=== PATIENT | female | born 1955 | race Caucasian/White ===

== ENCOUNTER 2016-12-15 13:01 | Observation (INO) ==
--- NOTE | 2016-12-15 13:26 | Emergency Department Note ---
Disposition Clinical Impression: Upper GI bleed Disposition: Admitted As Inpatient Condition: Fair Referrals: Carlo Mchugh DO [Primary Care Provider] - Forms: ED Satisfaction Letter, Work/School Release Time of Disposition: 14:23 Abdominal Pain HPI - General Chief Complaint: ED Abdominal Pain Stated Complaint: ABD Pain/Bloody stool Time Seen by Provider: 12/15/16 13:07 Source: patient Mode of arrival: ambulatory Nursing Notes Reviewed: Yes Vital Signs Reviewed: Yes - History of Present Illness HPI Narrative: 61-year-old with a history of reflux who comes in complaining of epigastric burning. Patient states she has noticed dark tarry stools since. Patient is on a medication she doesn't know the name for reflux. Pt Subjective Complaint: abdominal pain Onset (ago): day(s) Consistency: constant Location: epigastric Pain Severity: moderate Pain Scale: 5 Quality: burning Radiation: none Migration to: no migration Improves with: nothing Worsens with: nothing Context: other (Dark tarry stools) Associated symptoms: Reports: other (Dark tarry stools) Treatments prior to arrival: other (Flux medication) - Related Data Home Medications Medication Instructions Recorded Confirmed Alprazolam 12/20/14 12/20/14 Atenolol 12/20/14 12/20/14 Cholestyramine 12/20/14 12/20/14 Hydrodiuril 12/20/14 12/20/14 Norvasc 12/20/14 12/20/14 Omeprazole 12/20/14 12/20/14 Restasis 12/20/14 12/20/14 Synthroid 12/20/14 12/20/14 Previous Rx's Medication Instructions Recorded Cephalexin [Keflex] 500 mg PO QID #40 capsule 12/20/14 GuaiFENesin/Codeine [Robitussin 5 ml PO Q6HR PRN #120 ml 12/20/14 w/Codeine] Benzonatate [Tessalon] 100 mg PO TID #30 capsule 01/04/15 GuaiFENesin ER [Mucinex] 1,200 mg PO BID #20 tbbp.12hr 01/04/15 Moxifloxacin HCl [Avelox] 400 mg PO DAILY #10 tablet 01/04/15 predniSONE [Prednisone] 60 mg PO DAILY 5 Days tablet 01/04/15 Azithromycin [Zithromax] 250 mg PO DAILY #6 tablet 01/02/16 Benzonatate [Tessalon] 200 mg PO TID PRN #30 capsule 01/02/16 GuaiFENesin ER [Mucinex] 1,200 mg PO BID #20 tbbp.12hr 01/02/16 methylPREDNISolone [Medrol] 4 mg PO TAPER #21 tablet 01/02/16 Allergies Allergy/AdvReac Type Severity Reaction Status Date / Time shellfish derived Allergy Vomiting Verified 08/10/15 18:18 Sulfa (Sulfonamide Allergy Hives Verified 12/20/14 10:44 Antibiotics) Constitutional: Denies: fever, chills, weakness, weight change Eyes: Denies: eye pain, eye discharge, vision change ENT ED: Denies: ear pain, throat pain, dental pain, hearing loss, epistaxis, congestion, dysphagia Cardiovascular: Denies: chest pain, palpitations, dyspnea on exertion, edema, syncope Respiratory: Denies: cough, dyspnea, wheezes, hemoptysis, stridor Gastrointestinal: Reports: abdominal pain, other (Tarry stools). Denies: nausea , vomiting, diarrhea, constipation, hematemesis, melena, hematochezia Genitourinary: Denies: dysuria, frequency, hematuria, discharge Musculoskeletal: Denies: back pain, neck pain, arthralgia, myalgia Integumentary: Denies: rash, abrasion, lesions Neurological: Denies: headache, weakness, numbness, paresthesias, confusion, abnormal gait, vertigo Psychiatric: Denies: anxiety, depression, suicidal thoughts, homicidal thoughts , auditory hallucinations, visual hallucinations Endocrine: Denies: fatigue Hematological/Lymphatic: Denies: easy bleeding, easy bruising Allergic/Immunologic: Denies: facial swelling, urticaria Abdominal Pain PMH - Past Medical History Medical history: Reports: GERD, hypertension Female Surgical History: Reports: appendectomy, cholecystectomy, hysterectomy, other Psychiatric history: Reports: no psych history - Social History Smoking status: Never smoker Alcohol use: Reports: none Drug use: Reports: none Physical Exam - General Limitations: no limitations General appearance: alert, in no apparent distress - Head Head exam: atraumatic, normocephalic, normal inspection - Eye Eye exam: Present: normal appearance, PERRL, EOMI - ENT ENT exam: normal exam, normal oropharynx, mucous membranes moist - Neck Neck exam: Present: normal inspection, full ROM, trachea midline - Chest Chest inspection: Present: normal inspection, symmetric chest wall rise - Respiratory Respiratory exam: Present: normal lung sounds bilaterally - Cardiovascular Cardiovascular exam: Present: regular rate, normal rhythm, normal heart sounds - Abdominal Exam Abdominal exam: Present: soft, tenderness. Absent: guarding, rebound Abdominal tenderness: Present: epigastrium - Rectal Exam Rectal exam: Present: heme (+) stool - Extremities Exam Extremities exam: Present: normal inspection, full ROM. Absent: tenderness, pedal edema - Expanded Lower Extremity Exam Neurovascular/Tendon exam: Absent: motor deficit, sensory deficit, tendon deficit Gait: observed and normal - Back Exam Back exam: Present: normal inspection, full ROM. Absent: tenderness - Neurological Exam Neurological exam: Present: alert, oriented X3 - Psychiatric Psychiatric exam: Present: normal affect, normal mood - Skin Skin exam: Present: warm, dry, intact, normal color Course - Reevaluation(s) Reevaluation #1: 61-year-old with a history of reflux comes in with burning epigastric pain and dark tarry stools. Hemoglobin is in the low normal range however it is gram down from her last hemoglobin. Patient was given IV Protonix rectal exam did show positive stool. Patient will be admitted for further evaluation and treatment. Time: 14:21 Vital Signs Temperature 97.9 F 12/15/16 13:02 Pulse Rate 77 12/15/16 13:02 Respiratory Rate 16 12/15/16 13:02 Blood Pressure 154/85 12/15/16 13:02 O2 Sat by Pulse Oximetry 97 12/15/16 13:02 Temperature 97.9 F 12/15/16 13:02 Pulse Rate 60 12/15/16 14:03 Respiratory Rate 16 12/15/16 13:31 Blood Pressure 140/70 12/15/16 14:03 O2 Sat by Pulse Oximetry 96 12/15/16 14:03 Oxygen Delivery Oxygen Delivery Room Air Abdominal Pain - Lab Data Result diagrams: 12/15/16 13:31 12/15/16 13:31 Lab Results 12/15/16 12/15/16 12/15/16 Range/Units 13:31 13:31 13:31 WBC 7.6 (4.3-11.1) K/mcL RBC 4.37 (3.82-4.97) M/mcL Hgb 11.9 (11.5-15.4) g/dL Hct 37.4 (35.3-44.9) % MCV 85.6 (83.0-100.0) fL MCH 27.2 L (28.0-33.3) pg MCHC 31.8 (31.6-35.5) g/dL RDW 13.8 (11.5-14.5) % Plt Count 450 H (140-400) K/mcL MPV 8.6 L (9.4-12.4) fL Immature Gran % 0.5 (0-4) % Seg Neutrophils % 60.8 % Lymphocytes % 25.5 % Monocytes % 9.9 % Eosinophils % 2.6 % Basophils % 0.7 % Neutrophils # 4.6 (1.6-8.9) K/mcL Lymphocytes # 2.0 (0.6-4.6) K/mcL Monocytes # 0.8 (0.0-1.3) K/mcL Eosinophils # 0.2 (0.0-0.6) K/mcL Basophils # 0.1 (0.0-0.2) K/mcL PT 11.4 (9.4-12.1) Seconds INR 1.1 APTT 27.7 (26.0-36.0) Seconds Sodium 139 (136-145) mEq/L Potassium 3.8 (3.5-4.5) mEq/L Chloride 104 (98-109) mEq/L Carbon Dioxide 25 (19-29) mEq/L BUN 15 (7-20) mg/dL Creatinine 0.94 (0.57-1.11) mg/dL Est GFR ( Amer) > 60 (> 60) Est GFR (Non-Af Amer) > 60 (> 60) BUN/Creatinine Ratio 16 (6-26) Glucose 82 (70-99) mg/dL Calculated Osmolality 288 (280-300) Calcium 9.0 (8.6-10.8) mg/dL Blood Type Antibody Screen 12/15/16 Range/Units 13:31 WBC (4.3-11.1) K/mcL RBC (3.82-4.97) M/mcL Hgb (11.5-15.4) g/dL Hct (35.3-44.9) % MCV (83.0-100.0) fL MCH (28.0-33.3) pg MCHC (31.6-35.5) g/dL RDW (11.5-14.5) % Plt Count (140-400) K/mcL MPV (9.4-12.4) fL Immature Gran % (0-4) % Seg Neutrophils % % Lymphocytes % % Monocytes % % Eosinophils % % Basophils % % Neutrophils # (1.6-8.9) K/mcL Lymphocytes # (0.6-4.6) K/mcL Monocytes # (0.0-1.3) K/mcL Eosinophils # (0.0-0.6) K/mcL Basophils # (0.0-0.2) K/mcL PT (9.4-12.1) Seconds INR APTT (26.0-36.0) Seconds Sodium (136-145) mEq/L Potassium (3.5-4.5) mEq/L Chloride (98-109) mEq/L Carbon Dioxide (19-29) mEq/L BUN (7-20) mg/dL Creatinine (0.57-1.11) mg/dL Est GFR ( Amer) (> 60) Est GFR (Non-Af Amer) (> 60) BUN/Creatinine Ratio (6-26) Glucose (70-99) mg/dL Calculated Osmolality (280-300) Calcium (8.6-10.8) mg/dL Blood Type A POSITIVE Antibody Screen NEGATIVE - EKG Data EKG attestation: Yes I reviewed and interpreted this EKG. EKG shows normal: sinus rhythm Rate: normal Rhythm: NSR Interpretation: no acute changes
[2016-12-15] MEDS ORDERED: Pantoprazole 40 MG VIAL IVP ONE (13:28)
[2016-12-15 13:39] LABS: Basophils # 0.1 K/mcL (0.0-0.2); Basophils % 0.7 %; Eosinophils # 0.2 K/mcL (0.0-0.6); Eosinophils % 2.6 %; Hematocrit 37.4 % (35.3-44.9); Hemoglobin 11.9 g/dL (11.5-15.4); Immature Granulocytes % 0.5 % (0-4); Lymphocytes % 25.5 %; Mean Corpuscular HGB Conc 31.8 g/dL (31.6-35.5); Mean Corpuscular Hemoglobin 27.2 pg (28.0-33.3); Mean Corpuscular Volume 85.6 fL (83.0-100.0); Mean Platelet Volume 8.6 fL (9.4-12.4); Monocytes # 0.8 K/mcL (0.0-1.3); Monocytes % 9.9 %; Neutrophils # 4.6 K/mcL (1.6-8.9); Platelet Count 450 K/mcL (140-400); Red Blood Count 4.37 M/mcL (3.82-4.97); Red Cell Distribution Width 13.8 % (11.5-14.5); Segmented Neutrophils % 60.8 %
[2016-12-15 13:43] LABS: INR 1.1; Prothrombin Time 11.4 Seconds (9.4-12.1)
[2016-12-15 13:45] LABS: Activated Partial Thrombo Time 27.7 Seconds (26.0-36.0)
[2016-12-15 13:50] LABS: BUN/Creatinine Ratio 16 (6-26); Blood Urea Nitrogen 15 mg/dL (7-20); Carbon Dioxide 25 mEq/L (19-29); Chloride 104 mEq/L (98-109); Glucose 82 mg/dL (70-99); Osmolality,Calculated 288 (280-300); Potassium 3.8 mEq/L (3.5-4.5); Sodium 139 mEq/L (136-145); eGFR For African Americans > 60 (> 60); eGFR For Non-African Americans > 60 (> 60)
--- NOTE | 2016-12-15 14:50 | Internal Med History&Physical ---
Date of Encounter: 12/15/16 Time of Encounter: 14:48 Assessment and Plan (1) Upper GI bleed Current visit: Yes Status: Acute Suspect upper G.I. bleed due to peptic ulcer disease. We will keep NPO start Protonix drip follow H&H, gastroenterology consultation for endoscopy. Patient is hemodynamically stable, with only slight drop in hemoglobin. (2) Hypertension Current visit: Yes Status: Acute hold blood pressure medications for now. Qualifiers: Qualified Code(s): I10 - Essential (primary) hypertension Internal Medicine - H&P: HPI Chief complaint: melena History of present illness: Ms. Hooper is a 61 year old female patient with history of hypertension, hypothyroidism and reflux presents the emergency room today with the main complain of black stool. For the past 2 days patient has been having black tarry stools approximately 2 to 3 bowel movements daily. She has been having epigastric discomfort. She has also been intermittently nauseous unable to tolerate food well. She denies vomiting of blood. She denies intake of nonsteroidal anti-inflammatory drugs. No antiplatelet or anticoagulant medications. Patient mentioned that she was under stress the past 3 months because of her sons divorce. Past Med Surg Social Fam HX - Past Medical History Medical history: GERD, hypertension Psychiatric history: no psych history - Past Surgical History Surgical History: appendectomy, cholecystectomy, hysterectomy, orthopedic, other - Social History Smoking Status: Never smoker Smokeless Tobacco Status: No Alcohol use: none Drug use: none Internal Medicine - H&P: Meds ALPRAZolam [Xanax 1 MG Tablet] 1 mg PO DAILY PRN 12/15/16 [History] Atenolol [Tenormin] 50 mg PO BID 12/15/16 [History] Cholestyramine (with Sugar) [Cholestyramine Bulk Powder] 4 gm PO BID 12/15/16 [ History] Levothyroxine [Synthroid] 100 mcg PO DAILY 12/15/16 [History] Omeprazole [PriLOSEC] 40 mg PO DAILY 12/15/16 [History] amLODIPine [Norvasc] 5 mg PO DAILY 12/15/16 [History] hydroCHLOROthiazide [Hydrochlorothiazide] 25 mg PO DAILY 12/15/16 [History] 3 Allergy/AdvReac Type Severity Reaction Status Date / Time shellfish derived Allergy Vomiting Verified 08/10/15 18:18 Sulfa (Sulfonamide Allergy Hives Verified 12/20/14 10:44 Antibiotics) All Systems PM: A 10-system review of systems was performed and is negative for pertinent findings except as documented above in the HPI. Review of systems: 10 point review of systems is negative except for HPI - Constitutional Vitals: Temp Pulse Resp BP Pulse Ox 97.9 F 60 16 140/70 96 12/15/16 13:02 12/15/16 14:03 12/15/16 13:31 12/15/16 14:03 12/15/16 14:03 Exam: Gen.: patient is alert oriented times 3 cardiac: normal S1 S2 no additional sounds or murmurs chest: no active wheezing or bronchial breathing abdomen soft tenderness in epigastric area lower extremity no swelling. Neuro: no new focal deficits Internal Med - H&P Results - Labs CBC & Chem 7: 12/15/16 13:31 12/15/16 13:31 Labs: Short CBC 12/15/16 Range/Units 13:31 WBC 7.6 (4.3-11.1) K/mcL Hgb 11.9 (11.5-15.4) g/dL Hct 37.4 (35.3-44.9) % Plt Count 450 H (140-400) K/mcL Neutrophils # 4.6 (1.6-8.9) K/mcL BMP 12/15/16 13:31 Sodium 139 Potassium 3.8 Chloride 104 Carbon Dioxide 25 BUN 15 Creatinine 0.94 Glucose 82 Calcium 9.0
[2016-12-15] MEDS ORDERED: ALPRAZolam 1 MG TABLET PO PRN (14:54)
[2016-12-15] MEDS ORDERED: Pantoprazole 40 MG in 0.9 % Sodium Chloride Mini Bag 100 ML IVC SCH (15:00)
[2016-12-15] MEDS ORDERED: Acetaminophen 325 MG TABLET PO ONE (17:16)
--- NOTE | 2016-12-15 17:54 | General Surg History&Physical ---
Date of Encounter: 12/15/16 Time of Encounter: 17:45 History of Present Illness Chief complaint: Epigastric pain HPI: Ms. Hooper is a 61 year old female with a past medical history of hypertension, hypothyroidism, and reflux who presented to the emergency department on 12/15/16 with a chief complaint of epigastric pain and black stool of 2 days' duration. She notes that for the last 2 days, she has been having black tarry stools; approximately 2-3 bowel movements daily. Her epigastric discomfort is described as a burning pain constant, moderate, related 5 out of 10. No radiation. No exacerbating or leaving factors. She is also been intermittently nauseous and unable to tolerate food well. Patient denies having any vomiting. She denies the use of NSAIDs or antiplatelet or anticoagulation might medications. She does admit that she has been under stress the last 3 months because of her son's divorce. Upon admission to hospital, patient was hemodynamically stable. She denied having any fever, chills, weakness, nausea, vomiting, diarrhea, constipation. She denies any urinary symptoms. On physical examination, patient has constant epigastric pain that is not reproducible by palpation. Past Med Surg Social Fam HX - Past Medical History Medical history: GERD, hyperlipidemia, hypertension Psychiatric history: no psych history - Past Surgical History Surgical History: appendectomy, cholecystectomy, hysterectomy, orthopedic, other - Social History Smoking Status: Never smoker Smokeless Tobacco Status: No Alcohol use: none Drug use: none - Family History Father Hx Family Cardiac Disorders: Yes ([place]) Medications and Allergies ALPRAZolam [Xanax 1 MG Tablet] 1 mg PO DAILY PRN 12/15/16 [History] Atenolol [Tenormin] 50 mg PO BID 12/15/16 [History] Cholestyramine (with Sugar) [Cholestyramine Bulk Powder] 4 gm PO BID 12/15/16 [ History] Levothyroxine [Synthroid] 100 mcg PO DAILY 12/15/16 [History] Omeprazole [PriLOSEC] 40 mg PO DAILY 12/15/16 [History] amLODIPine [Norvasc] 5 mg PO DAILY 12/15/16 [History] hydroCHLOROthiazide [Hydrochlorothiazide] 25 mg PO DAILY 12/15/16 [History] 3 Allergy/AdvReac Type Severity Reaction Status Date / Time shellfish derived Allergy Vomiting Verified 08/10/15 18:18 Sulfa (Sulfonamide Allergy Hives Verified 12/20/14 10:44 Antibiotics) Review of Systems All systems PM: A 10-system review of systems was performed and is negative for pertinent findings except as documented above in the HPI. General Surgery Exam Initial Vital Signs Temp Pulse Resp BP Pulse Ox 97.9 F 77 16 154/85 97 12/15/16 13:02 12/15/16 13:02 12/15/16 13:02 12/15/16 13:02 12/15/16 13:02 Results - Labs 12/15/16 13:31 12/15/16 13:31 Abnormal lab results MCH 27.2 pg (28.0-33.3) L 12/15/16 13:31 Plt Count 450 K/mcL (140-400) H 12/15/16 13:31 MPV 8.6 fL (9.4-12.4) L 12/15/16 13:31 POC Glucose 90 (58-89) H 12/15/16 16:56 All other labs normal. - VTE Documentation of Mechanical Device: Intermittent pneumatic compression device
--- NOTE | 2016-12-15 17:59 | General Surgery Consult Note ---
<Randall Arciniega - Last Filed: 12/15/16 18:12> Date of Encounter: 12/15/16 Time of Encounter: 17:45 Assessment and Plan (1) Upper GI bleed Current Visit: Yes Status: Acute Patient's melena and epigastric pain is likely due to peptic ulcer disease. Patient denies smoking or alcohol use. She denies use of NSAIDs. She admits to being under increased stress over the last 3 months due to her son 's divorce. Patient's hemoglobin currently 11.9. Last hemoglobin on 06/11/2015 was 12.8. Plan: -NPO in preparation for upper endoscopy. -Serial H&H 3. Repeat a.m. labs. -Pantoprazole 40 mg IVC 20 mL per hour. -Avoid NSAIDs. -Fecal occult has ordered. -EGD tomorrow. (2) Abdominal pain Current Visit: No Status: Acute Patient complains of epigastric pain. -5/10, constant, burning, nonradiating, no exacerbating or relieving factors. -Nonreproducible by palpation. -Likely due to peptic ulcer disease. -Upper endoscopy tomorrow. Qualifiers: Qualified Code(s): R10.13 - Epigastric pain (3) Hypertension Current Visit: Yes Status: Acute Patient has known history of hypertension. -Patient's current blood pressure is 122/76. -Normally takes hydrochlorothiazide 25 mg by mouth daily. -Hold blood pressure medication for the time being. Qualifiers: Hypertension type: essential hypertension Qualified Code(s): I10 - Essential (primary) hypertension History of Present Illness Consult date: 12/15/16 History of present illness: Ms. Hooper is a 61 year old female with a past medical history of hypertension, hypothyroidism, and reflux who presented to the emergency department on 12/15/16 with a chief complaint of epigastric pain and black stool of 2 days' duration. She notes that for the last 2 days, she has been having black tarry stools; approximately 2-3 bowel movements daily. Her epigastric discomfort is described as a burning pain constant, moderate, rated 5 out of 10. No radiation. No exacerbating or leaving factors. She is also been intermittently nauseous and unable to tolerate food well. Patient denies having any vomiting. She denies the use of NSAIDs or antiplatelet or anticoagulation might medications. She does admit that she has been under stress the last 3 months because of her son's divorce. Upon admission to hospital, patient was hemodynamically stable. She denied having any fever, chills, weakness, nausea, vomiting, diarrhea, constipation. She denies any urinary symptoms. On physical examination, patient has constant epigastric pain that is not reproducible by palpation. The remainder of her physical examination is unremarkable. Patient has no other complaints at this time. Patient states that her last upper endoscopy and colonoscopy was last year. During this time, a hiatal hernia was discovered. There were no abnormalities found on her colonoscopy. Past Med Surg Social Fam HX - Past Medical History Medical history: GERD, hyperlipidemia, hypertension Psychiatric history: no psych history - Past Surgical History Surgical History: appendectomy, cholecystectomy, hysterectomy, orthopedic, other - Social History Smoking Status: Never smoker Smokeless Tobacco Status: No Alcohol use: none Drug use: none - Family History Father Hx Family Cardiac Disorders: Yes ([place]) Medications and Allergies ALPRAZolam [Xanax 1 MG Tablet] 1 mg PO DAILY PRN 12/15/16 [History] Atenolol [Tenormin] 50 mg PO BID 12/15/16 [History] Cholestyramine (with Sugar) [Cholestyramine Bulk Powder] 4 gm PO BID 12/15/16 [ History] Levothyroxine [Synthroid] 100 mcg PO DAILY 12/15/16 [History] Omeprazole [PriLOSEC] 40 mg PO DAILY 12/15/16 [History] amLODIPine [Norvasc] 5 mg PO DAILY 12/15/16 [History] hydroCHLOROthiazide [Hydrochlorothiazide] 25 mg PO DAILY 12/15/16 [History] Sucralfate [Carafate] 1 gm PO QIDAC #120 tablet 12/16/16 [Rx] 3 Allergy/AdvReac Type Severity Reaction Status Date / Time shellfish derived Allergy Vomiting Verified 08/10/15 18:18 Sulfa (Sulfonamide Allergy Hives Verified 12/20/14 10:44 Antibiotics) Review of Systems All systems PM: A 10-system review of systems was performed and is negative for pertinent findings except as documented above in the HPI. - Constitutional as per HPI, no anorexia, no chills, no fever(s), no lethargy, no weakness, no weight loss - Cardiovascular as per HPI, no chest pain, no chest pain at rest, no dyspnea - Respiratory as per HPI, no cough, no dyspnea, no hemoptysis, no wheezing - Genitourinary Genitourinary: no dysuria - Neurological no dizziness, no weakness - Psychiatric no confusion General Surgery Exam Initial Vital Signs Temp Pulse Resp BP Pulse Ox 97.9 F 77 16 154/85 97 12/15/16 13:02 12/15/16 13:02 12/15/16 13:02 12/15/16 13:02 12/15/16 13:02 - General physical appearance well developed, well nourished, no distress - Neck no masses, trachea midline, no lymphadectomy - Respiratory normal expansion, normal respiratory effort, clear to percussion, clear to auscultation - Cardiovascular Cardiovascular exam: Present: RRR, no murmurs/rubs/gallops - Abdomen Abdomen general surgery: Present: bowel sounds present, soft, tender Abdominal Tenderness: Present: epigastic - Psychiatric Psychiatric general surgery: Present: A&Ox3, appropriate, oriented to person, oriented to place, oriented to time, speech is normal Exam Initial Vital Signs Temp Pulse Resp BP Pulse Ox 97.9 F 77 16 154/85 97 12/15/16 13:02 12/15/16 13:02 12/15/16 13:02 12/15/16 13:02 12/15/16 13:02 Results - Labs 12/15/16 13:31 12/15/16 13:31 Abnormal lab results MCH 27.2 pg (28.0-33.3) L 12/15/16 13:31 Plt Count 450 K/mcL (140-400) H 12/15/16 13:31 MPV 8.6 fL (9.4-12.4) L 12/15/16 13:31 POC Glucose 90 (58-89) H 12/15/16 16:56 All other labs normal. Consult Discharge Plan - Plan Instructions: Gastrointestinal Bleeding (DC), Gastrointestinal Bleeding (GEN), Chronic Hypertension (DC) Referrals: Carlo Mchugh DO [Primary Care Provider] - 12/27/16 9:00 am (in 1 week Appointment was already scheduled prior to hospital visit. Will have patient call and schedule for a sooner appointment. Also, will send web request.) Prescriptions: Sucralfate [Carafate] 1 gm PO QIDAC #120 tablet <Kathrine Witt - Last Filed: 12/16/16 18:20> Date of Encounter: 12/16/16 Assessment and Plan (1) Melena Current Visit: Yes Status: Acute (2) Epigastric pain Current Visit: Yes Status: Acute discussed with patient performing EGD to evaluate for upper abdominal source of her melena and epigastric pain. Will plan EGD tomorrow, risks and benefits discussed and she wishes to proceed patient with colonoscopy oct 2015 w/o pathology npo midnight recommend start PPI and carafate History of Present Illness History of present illness: Patient with 2 day history epigastric pain which she describes as burning in nature. She has been having black melanotic stools during this time frame as well. She has also noticed some bright red blood on toilet paper when she wipes recently. No abdominal pain elsewhere. Recently October 2015 had EGD/ colonoscopy. Some nausea without emesis. States she has been stressed regarding her sons divorce Past Med Surg Social Fam HX - Past Medical History Source: patient Medical history: thyroid disease, other (hiatal hernia) Review of Systems All systems PM: reviewed and no additional remarkable complaints except as stated All systems PM: A 10-system review of systems was performed and is negative for pertinent findings except as documented above in the HPI. General Surgery Exam Initial Vital Signs Temp Pulse Resp BP Pulse Ox 97.9 F 77 16 154/85 97 12/15/16 13:02 12/15/16 13:02 12/15/16 13:02 12/15/16 13:02 12/15/16 13:02 - General physical appearance well developed, well nourished, no distress - Eyes PERRL, normal ocular movement - ENT normal mucosa, normocephalic - Neck trachea midline - Respiratory normal expansion, clear to auscultation - Cardiovascular Cardiovascular exam: Present: RRR, no murmurs/rubs/gallops - Abdomen Abdomen general surgery: Present: bowel sounds present, soft, tender. Absent: guarding, rebound Abdominal Tenderness: Present: epigastic - Integumentary Integumentary general surgery: Present: warm and dry - Neurologic Present: CN 2-12 grossly intact, normal coordination - Musculoskeletal Present: normal gait - Psychiatric Psychiatric general surgery: Present: A&Ox3, speech is normal Exam Initial Vital Signs Temp Pulse Resp BP Pulse Ox 97.9 F 77 16 154/85 97 12/15/16 13:02 12/15/16 13:02 12/15/16 13:02 12/15/16 13:02 12/15/16 13:02 Results - Labs 12/16/16 07:30 12/16/16 01:43 Abnormal lab results Hgb 11.2 g/dL (11.5-15.4) L 12/16/16 07:30 Hct 35.1 % (35.3-44.9) L 12/16/16 07:30 MCH 27.5 pg (28.0-33.3) L 12/16/16 01:43 MPV 8.7 fL (9.4-12.4) L 12/16/16 01:43 Diabetes panel 12/16/16 Range/Units 01:43 Sodium 139 (136-145) mEq/L Potassium 3.6 (3.5-4.5) mEq/L Chloride 105 (98-109) mEq/L Carbon Dioxide 26 (19-29) mEq/L BUN 15 (7-20) mg/dL Creatinine 0.90 (0.57-1.11) mg/dL Glucose 89 (70-99) mg/dL Calcium 8.9 (8.6-10.8) mg/dL Calcium panel 12/16/16 Range/Units 01:43 Calcium 8.9 (8.6-10.8) mg/dL Pituitary panel 12/16/16 Range/Units 01:43 Sodium 139 (136-145) mEq/L Potassium 3.6 (3.5-4.5) mEq/L Chloride 105 (98-109) mEq/L Carbon Dioxide 26 (19-29) mEq/L BUN 15 (7-20) mg/dL Creatinine 0.90 (0.57-1.11) mg/dL Glucose 89 (70-99) mg/dL Calcium 8.9 (8.6-10.8) mg/dL Adrenal panel 12/16/16 Range/Units 01:43 Sodium 139 (136-145) mEq/L Potassium 3.6 (3.5-4.5) mEq/L Chloride 105 (98-109) mEq/L Carbon Dioxide 26 (19-29) mEq/L BUN 15 (7-20) mg/dL Creatinine 0.90 (0.57-1.11) mg/dL Glucose 89 (70-99) mg/dL Calcium 8.9 (8.6-10.8) mg/dL All other labs normal. - Attending Attestation I examined this patient and my medical decision-making was reviewed with the Resident Physician. I agree with the documented findings, disposition and treatment plan as described except to the extent set forth below.
[2016-12-15] MEDS: Pantoprazole 80 MG in 0.9 % Sodium Chloride 250 ML IVC SCH (18:37)
[2016-12-15 21:00] LABS: Hematocrit 34.4 % (35.3-44.9); Hemoglobin 11.2 g/dL (11.5-15.4)
[2016-12-16 01:51] LABS: Basophils % 0.5 %; Eosinophils # 0.3 K/mcL (0.0-0.6); Hematocrit 34.3 % (35.3-44.9); Hemoglobin 11.1 g/dL (11.5-15.4); Immature Granulocytes % 0.4 % (0-4); Lymphocytes # 2.7 K/mcL (0.6-4.6); Lymphocytes % 34.8 %; Mean Corpuscular HGB Conc 32.4 g/dL (31.6-35.5); Mean Corpuscular Hemoglobin 27.5 pg (28.0-33.3); Mean Corpuscular Volume 85.1 fL (83.0-100.0); Mean Platelet Volume 8.7 fL (9.4-12.4); Monocytes # 0.8 K/mcL (0.0-1.3); Monocytes % 10.2 %; Neutrophils # 3.9 K/mcL (1.6-8.9); Platelet Count 382 K/mcL (140-400); Red Blood Count 4.03 M/mcL (3.82-4.97); Red Cell Distribution Width 13.9 % (11.5-14.5); Segmented Neutrophils % 50.1 %
[2016-12-16 02:02] LABS: BUN/Creatinine Ratio 17 (6-26); Blood Urea Nitrogen 15 mg/dL (7-20); Calcium 8.9 mg/dL (8.6-10.8); Carbon Dioxide 26 mEq/L (19-29); Chloride 105 mEq/L (98-109); Glucose 89 mg/dL (70-99); Magnesium 1.7 mg/dL (1.6-2.6); Osmolality,Calculated 288 (280-300); Potassium 3.6 mEq/L (3.5-4.5); Sodium 139 mEq/L (136-145); eGFR For African Americans > 60 (> 60); eGFR For Non-African Americans > 60 (> 60)
[2016-12-16] MEDS: Pantoprazole 80 MG in 0.9 % Sodium Chloride 250 ML IVC SCH (04:38)
[2016-12-16 08:54] LABS: Hematocrit 35.1 % (35.3-44.9); Hemoglobin 11.2 g/dL (11.5-15.4)
[2016-12-16] MEDS ORDERED: *HR* Midazolam HCl 5 MG/5 ML VIAL IVP ONE ×2 (10:28→10:35)
[2016-12-16] MEDS ORDERED: *HR* FentaNYL (PF) 100 MCG/2 ML VIAL ONE (10:29)
[2016-12-16] MEDS ORDERED: *HR* Promethazine 25 MG/ML VIAL ONE (10:29)
[2016-12-16] MEDS ORDERED: Simethicone 40 MG/0.6 ML MLS IR ONE (10:35)
[2016-12-16] MEDS ORDERED: Tetracaine/Benzocaine/Butamben 200MG/SPRAY (100SPY/BOT) MM ONE (10:35)
[2016-12-16] MEDS ORDERED: *HR* Promethazine 25 MG/ML VIAL IVP ONE (10:35)
[2016-12-16] MEDS ORDERED: *HR* FentaNYL (PF) 100 MCG/2 ML VIAL IVP ONE (10:35)
--- NOTE | 2016-12-16 10:38 | Pre-Sedation Evaluation ---
Pre-sedation evaluation - Pre-sedation checklist Date of procedure: 12/16/16 Procedure: EGD Recent Vitals: Last Vital Signs Temp 98.4 F 12/16/16 10:27 Pulse 78 12/16/16 10:27 Resp 14 12/16/16 10:27 BP 109/69 12/16/16 10:27 Pulse Ox 94 12/16/16 10:27 H&P (including ROS) documented in medical record: Yes Previous reaction to sedatives/anesthetics: No Dietary Status: NPO after Midnight Dentition: No loose teeth or bridges ASA Classification *see protocol: CLASS III-Severe systemic disease Plan of Care: Pt appropriate candidate for procedure/moderate/conscious sedation , Risks/benefits of procedure/sedation discussed w/ patient/family
[2016-12-16] MEDS ORDERED: 0.9 % Sodium Chloride 1,000 ML IVC SCH ×2 (10:45→12:29)
--- NOTE | 2016-12-16 11:37 | General Surgery Progress Note ---
<Randall Arciniega - Last Filed: 12/16/16 11:39> Date of Encounter: 12/16/16 Time of Encounter: 10:45 - Assessment and Plan (1) Upper GI bleed Current Visit: Yes Status: Acute Patient's melena and epigastric pain is likely due to peptic ulcer disease. Patient denies smoking or alcohol use. She denies use of NSAIDs. She admits to being under increased stress over the last 3 months due to her son 's divorce. Patient's hemoglobin currently 11.2. Last hemoglobin on 06/11/2015 was 12.8. Plan: -NPO in preparation for upper endoscopy. -Serial H&H 3. -Pantoprazole 40 mg IVC 20 mL per hour. -Avoid NSAIDs. -Fecal occult has ordered. -EGD scheduled for this morning. (2) Hypertension Current Visit: Yes Status: Acute Patient has known history of hypertension. -Patient's current blood pressure is 133/76. -Normally takes hydrochlorothiazide 25 mg by mouth daily. -Hold blood pressure medication for the time being. Qualifiers: Hypertension type: essential hypertension Qualified Code(s): I10 - Essential (primary) hypertension Subjective Patient reports: no new complaints, feels better Narrative: Patient was seen and examined at bedside this morning. She reports that her abdominal pain has subsided. She currently denies any nausea, vomiting, fever, chills. She has no new complaints at this time. Objective Vital Signs - Last 8 Hours Temp Pulse Resp BP Pulse Ox 12/16/16 11:30 78 14 133/66 95 12/16/16 10:57 78 14 133/66 95 12/16/16 10:56 98.4 F 78 14 109/69 12/16/16 10:27 98.4 F 78 14 109/69 94 12/16/16 06:52 97.8 F 77 14 111/75 95 12/16/16 03:40 97.9 F 58 15 115/64 95 Intake and Output 12/15/16 12/16/16 12/16/16 23:59 07:59 15:59 Intake Total 0 / 0 250 / 250 0 / 0 Output Total 300 / 300 600 / 600 100 / 100 Balance -300 / -300 -350 / -350 -100 / -100 Intake: IV Fluids 250 / 250 Protonix 80 MG In 0.9 % Sodium 250 / 250 Chloride 250 ML @ 25 mls/hr IVC .Q10H [facility] Rx#:[id number] Oral 0 / 0 0 / 0 0 / 0 Output: Urine 300 / 300 600 / 600 100 / 100 Other: Meal NPO NPO Percent of Meal Consumed 0% Stool Size Small Stool Consistency soft formed Stool Color Brown # Bowel Movements 1 Weight 74.3 kg Blood Glucose* 87 91 Patient Weight 12/16/16 23:59 Weight 74.3 kg - General physical appearance well developed, well nourished, no distress - Neck Neck exam: no masses, trachea midline, no lymphadectomy - Respiratory normal expansion, normal respiratory effort, clear to auscultation - Cardiovascular Cardiovascular exam: Present: RRR, no murmurs/rubs/gallops - Abdomen Abdomen: Present: bowel sounds present, soft, non tender - Musculoskeletal normal posture - Psychiatric oriented to time, oriented to person, oriented to place, speech is normal, memory intact - Labs 12/16/16 07:30 12/16/16 01:43 Diabetes panel 12/16/16 Range/Units 01:43 Sodium 139 (136-145) mEq/L Potassium 3.6 (3.5-4.5) mEq/L Chloride 105 (98-109) mEq/L Carbon Dioxide 26 (19-29) mEq/L BUN 15 (7-20) mg/dL Creatinine 0.90 (0.57-1.11) mg/dL Glucose 89 (70-99) mg/dL Calcium 8.9 (8.6-10.8) mg/dL Calcium panel 12/16/16 Range/Units 01:43 Calcium 8.9 (8.6-10.8) mg/dL Pituitary panel 12/16/16 Range/Units 01:43 Sodium 139 (136-145) mEq/L Potassium 3.6 (3.5-4.5) mEq/L Chloride 105 (98-109) mEq/L Carbon Dioxide 26 (19-29) mEq/L BUN 15 (7-20) mg/dL Creatinine 0.90 (0.57-1.11) mg/dL Glucose 89 (70-99) mg/dL Calcium 8.9 (8.6-10.8) mg/dL Adrenal panel 12/16/16 Range/Units 01:43 Sodium 139 (136-145) mEq/L Potassium 3.6 (3.5-4.5) mEq/L Chloride 105 (98-109) mEq/L Carbon Dioxide 26 (19-29) mEq/L BUN 15 (7-20) mg/dL Creatinine 0.90 (0.57-1.11) mg/dL Glucose 89 (70-99) mg/dL Calcium 8.9 (8.6-10.8) mg/dL - VTE Documentation of Mechanical Device: Intermittent pneumatic compression device Consult Discharge Plan - Plan Instructions: Gastrointestinal Bleeding (DC), Gastrointestinal Bleeding (GEN), Chronic Hypertension (DC) Referrals: Carlo Mchugh DO [Primary Care Provider] - 12/27/16 9:00 am (in 1 week Appointment was already scheduled prior to hospital visit. Will have patient call and schedule for a sooner appointment. Also, will send web request.) Prescriptions: Sucralfate [Carafate] 1 gm PO QIDAC #120 tablet <Kathrnie Witt - Last Filed: 12/16/16 18:15> Date of Encounter: 12/16/16 - Assessment and Plan (1) Epigastric pain Current Visit: Yes Status: Acute planning EGD today Objective Vital Signs - Last 8 Hours Temp Pulse Resp BP Pulse Ox 12/16/16 14:52 98.0 F 75 14 106/63 95 12/16/16 13:20 97.4 F L 70 14 100/65 92 12/16/16 11:40 70 14 151/81 98 12/16/16 11:35 70 14 165/89 98 12/16/16 11:30 78 14 133/66 95 12/16/16 10:57 78 14 133/66 95 12/16/16 10:56 98.4 F 78 14 109/69 12/16/16 10:27 98.4 F 78 14 109/69 94 Intake and Output 12/16/16 12/16/16 12/16/16 07:59 15:59 23:59 Intake Total 250 / 250 240 / 240 0 / 0 Output Total 600 / 600 100 / 100 Balance -350 / -350 140 / 140 0 / 0 Intake: IV Fluids 250 / 250 Protonix 80 MG In 0.9 % Sodium 250 / 250 Chloride 250 ML @ 25 mls/hr IVC .Q10H [facility] Rx#:[id number] Oral 0 / 0 240 / 240 0 / 0 Output: Urine 600 / 600 100 / 100 Other: Meal NPO Dinner Percent of Meal Consumed 90% Stool Size Small Stool Consistency soft formed Stool Color Brown # Bowel Movements 1 Weight 74.3 kg Blood Glucose* 91 Patient Weight 12/16/16 23:59 Weight 74.3 kg - Labs 12/16/16 07:30 12/16/16 01:43 Diabetes panel 12/16/16 Range/Units 01:43 Sodium 139 (136-145) mEq/L Potassium 3.6 (3.5-4.5) mEq/L Chloride 105 (98-109) mEq/L Carbon Dioxide 26 (19-29) mEq/L BUN 15 (7-20) mg/dL Creatinine 0.90 (0.57-1.11) mg/dL Glucose 89 (70-99) mg/dL Calcium 8.9 (8.6-10.8) mg/dL Calcium panel 12/16/16 Range/Units 01:43 Calcium 8.9 (8.6-10.8) mg/dL Pituitary panel 12/16/16 Range/Units 01:43 Sodium 139 (136-145) mEq/L Potassium 3.6 (3.5-4.5) mEq/L Chloride 105 (98-109) mEq/L Carbon Dioxide 26 (19-29) mEq/L BUN 15 (7-20) mg/dL Creatinine 0.90 (0.57-1.11) mg/dL Glucose 89 (70-99) mg/dL Calcium 8.9 (8.6-10.8) mg/dL Adrenal panel 12/16/16 Range/Units 01:43 Sodium 139 (136-145) mEq/L Potassium 3.6 (3.5-4.5) mEq/L Chloride 105 (98-109) mEq/L Carbon Dioxide 26 (19-29) mEq/L BUN 15 (7-20) mg/dL Creatinine 0.90 (0.57-1.11) mg/dL Glucose 89 (70-99) mg/dL Calcium 8.9 (8.6-10.8) mg/dL
[2016-12-16] MEDS ORDERED: ALPRAZolam 1 MG TABLET PO PRN (12:29)
[2016-12-16] MEDS ORDERED: Pantoprazole 40 MG VIAL IVP SCH (12:29)
[2016-12-16 14:55] VITALS: BP 106/63
--- NOTE | 2016-12-16 15:44 | Discharge Summary ---
Date of Encounter: 12/16/16 Time of Encounter: 15:44 - Discharge Diagnosis (1) Gastritis Priority: Primary Status: Acute Qualifiers: Gastritis type: other gastritis Chronicity: acute Gastritis bleeding: with bleeding Qualified Code(s): K29.01 - Acute gastritis with bleeding (2) Upper GI bleed Priority: Primary Status: Resolved (3) Hypertension Priority: Secondary Status: Acute Qualifiers: Hypertension type: essential hypertension Qualified Code(s): I10 - Essential (primary) hypertension - Discharge Medications Prescriptions: Sucralfate [Carafate] 1 gm PO QIDAC #120 tablet Home Medications: ALPRAZolam [Xanax 1 MG Tablet] 1 mg PO DAILY PRN 12/15/16 [History] Atenolol [Tenormin] 50 mg PO BID 12/15/16 [History] Cholestyramine (with Sugar) [Cholestyramine Bulk Powder] 4 gm PO BID 12/15/16 [ History] Levothyroxine [Synthroid] 100 mcg PO DAILY 12/15/16 [History] Omeprazole [PriLOSEC] 40 mg PO DAILY 12/15/16 [History] amLODIPine [Norvasc] 5 mg PO DAILY 12/15/16 [History] hydroCHLOROthiazide [Hydrochlorothiazide] 25 mg PO DAILY 12/15/16 [History] Sucralfate [Carafate] 1 gm PO QIDAC #120 tablet 12/16/16 [Rx] Allergies/Adverse Reactions: 3 Allergy/AdvReac Type Severity Reaction Status Date / Time shellfish derived Allergy Vomiting Verified 08/10/15 18:18 Sulfa (Sulfonamide Allergy Hives Verified 12/20/14 10:44 Antibiotics) Date of admission: 12/15/16 17:11 Primary care physician: Carlo Mchugh Consults: 12/16/16 10:02 Consult to Surgery [CONS] Stat Consulting Provider: [facility] Reason for Consult: GI bleed Time Notified: 10:03 Call Completed: Yes Discharging clinician: Nazario Mcnally Anticipated date of discharge: 12/16/16 - Patient Status Disposition: Home, Self-Care Condition: Good Functional capacity at discharge: independent ambulation Overall status at discharge: patient is progressing back to baseline - Discharge Instructions Instructions: Chronic Hypertension (DC) Follow Up With: Carlo Mchugh DO [Primary Care Provider] - (in 1 week) - Diet and Activity Activity: increase activity as tolerated Diet: diabetic diet, low fat, low cholesterol, low salt diet Hospital course: Ms. Hooper is a 61 year old female who presented to the ER with complaints of abdominal pain and black tarry stools. Her hemoglobin levels were monitored closely. Her initial hemoglobin was 11.9. Surgery was consulted and patient underwent upper GI endoscopy today. This showed gastritis with no active bleeding. Patient also has hiatal hernia. Surgery recommends placing patient on Carafate 4 times daily. Biopsy samples have been taken and will be tested for H. pylori. At this time, patient is tolerating diet well and is clinically stable for discharge. She will be placed on PPI and Carafate. - Time Spent with Patient Total time spent providing and/or coordinating discharge services: Less than 30 minutes (20 min) - Constitutional Vitals: Temp Pulse Resp BP Pulse Ox 98.0 F 75 14 106/63 95 12/16/16 14:52 12/16/16 14:52 12/16/16 14:52 12/16/16 14:52 12/16/16 14:52 General appearance: Present: cooperative, A&O X 3, answers questions appropriately - Respiratory Respiratory exam: Present: CTAB. Absent: accessory muscle use, rales, rhonchi, wheezes - Cardiovascular Cardiovascular exam: Present: RRR, +S1, +S2. Absent: diastolic murmur, gallop, rubs, systolic murmur - GI/Abdominal GI/Abdominal exam: Present: normal bowel sounds, soft, no peritoneal signs. Absent: distended, tenderness - VTE Documentation of Mechanical Device: Intermittent pneumatic compression device
[2016-12-16] MEDS ORDERED: Sucralfate 1 GM TABLET PO SCH (16:30)
[2016-12-17] MEDS ORDERED: hydroCHLOROthiazide 25 MG TABLET PO SCH (09:00)
--- NOTE | 2016-12-18 06:38 | Electrocardiograph Report ---
[place] [id number] Test Date: 2016-12-15 Pat Name: Mi Hooper Department: 102 Room: 3A24 Gender: F [employer] Equipment Operator: Isrrael : 1955 Requested By: Chaim Hopper Order Number: [id number] Reading MD: Romel Young DO Measurements Intervals [place] Rate: 63 P: 20 IA: 149 QRS: 23 QRSD: 94 T: 55 QT: 407 QTc: 414 Interpretive Statements SINUS RHYTHM NONSPECIFIC ST & T-WAVE ABNORMALITY Electronically Signed On 12-18-2016 6:37:08 EST by Romel Young DO
== END 2016-12-16 19:00 | disposition home or self-care (01) | DRG 384 ==
LOC: 3ANU 13:01 → EMEROO 13:01 → 3ANU 15:35
PROVIDERS: ADMIT Internal Medicine; ATTEND Internal Medicine
PROC: ENDOEBX (2016-12-16 11:00)

== ENCOUNTER 2020-09-15 09:17 | Inpatient (IN) ==
[2020-09-15] MEDS ORDERED: Ondansetron 4 MG/2 ML VIAL ONE (09:23)
[2020-09-15] MEDS ORDERED: Lidocaine -MPF 2% 2 ML VIAL ONE (09:23)
[2020-09-15] MEDS ORDERED: *HR* Remifentanil 1 MG VIAL IVP ONE (09:23)
[2020-09-15] MEDS ORDERED: *HR* Succinylcholine 200 MG/10 ML VIAL IVP ONE (09:23)
[2020-09-15] MEDS ORDERED: Lidocaine -MPF 4% 5 ML AMPUL ONE (09:23)
[2020-09-15] MEDS ORDERED: *HR* Propofol 200 MG/20 ML VIAL IVP ONE (09:23)
[2020-09-15] MEDS ORDERED: *HR* FentaNYL (PF) 100 MCG/2 ML VIAL ONE (09:23)
[2020-09-15] MEDS ORDERED: *HR* Phenylephrine 10 MG/ML VIAL ONE (09:23)
[2020-09-15] MEDS ORDERED: Bupivacaine-MPF 0.25% 10 ML VIAL ONE (09:27)
[2020-09-15] MEDS ORDERED: Protamine Sulfate 50 MG/5 ML VIAL IVP ONE (09:27)
[2020-09-15] MEDS ORDERED: Heparin 1,000 UNITS/500 mL 1,000 ML ONE (09:27)
[2020-09-15] MEDS ORDERED: CeFAZolin Syr 2,000MG/20 ML 2,000 MG/20 ML SYRINGE IVPB ONE (09:40)
[2020-09-15] MEDS ORDERED: Ringers Solution, Lactated 1,000 ML IVC SCH (09:45)
[2020-09-15] MEDS ORDERED: Vancomycin 1,250 MG/262.5 ML IV.SOLN IVPB ONE ×2 (10:00→22:00)
[2020-09-15] MEDS ORDERED: Ondansetron 4 MG/2 ML VIAL IVP PRN ×2 (10:07→13:40)
[2020-09-15] MEDS ORDERED: *HR* OxyCODONE Immed Rel 5 MG TABLET PO PRN ×2 (10:07→13:40)
[2020-09-15] MEDS ORDERED: *HR* HYDROmorphone PF 0.5 MG/0.5 ML SYRINGE IVP PRN (10:07)
[2020-09-15] MEDS ORDERED: Heparin 1,000 UNITS/500 mL 0 ML ONE (10:10)
[2020-09-15] MEDS ORDERED: Vancomycin 1,000 MG, Sodium Chloride IRRigation 1,000 ML IR ONE (12:30)
[2020-09-15] MEDS ORDERED: *HR* Labetalol 20 MG/4 ML SYRINGE IVP PRN (13:40)
[2020-09-15] MEDS ORDERED: Acetaminophen 325 MG TABLET PO PRN (13:40)
[2020-09-15] MEDS ORDERED: Naloxone 0.4 MG/ML INJ IVP PRN (13:40)
[2020-09-15] MEDS ORDERED: ALPRAZolam 0.5 MG TABLET PO PRN (13:40)
[2020-09-15] MEDS ORDERED: 0.9 % Sodium Chloride 1,000 ML IVC SCH (13:40)
[2020-09-15] MEDS: *HR* Metoprolol 5 MG/5 ML VIAL IVP SCH ×2 (14:10→16:50)
[2020-09-15] MEDS: *HR* HYDROcodone/Acet 5/325 mg TABLET PO PRN ×2 (14:10→21:05)
[2020-09-15] MEDS: CeFAZolin 2 GM/120 ML BAG IVPB SCH (16:52)
[2020-09-16] MEDS: *HR* Metoprolol 5 MG/5 ML VIAL IVP SCH ×2 (00:54→06:16)
[2020-09-16] MEDS: CeFAZolin 2 GM/120 ML BAG IVPB SCH (00:58)
[2020-09-16 03:34] VITALS: BP 102/58; O2SAT 94
[2020-09-16] MEDS ORDERED: *HR* Heparin 5,000 UNIT/ML VIAL SQ SCH (06:00)
[2020-09-16 07:15] VITALS: TEMP 97.6
[2020-09-16] MEDS: *HR* HYDROcodone/Acet 5/325 mg TABLET PO PRN (07:39)
[2020-09-16 07:51] VITALS: PULSE 58
[2020-09-16] MEDS ORDERED: FLUoxetine 20 MG CAPSULE PO SCH (09:00)
[2020-09-16] MEDS ORDERED: atenoloL 25 MG TABLET PO SCH (09:00)
[2020-09-16] MEDS ORDERED: hydroCHLOROthiazide 25 MG TABLET PO SCH (09:00)
[2020-09-16] MEDS ORDERED: amLODIPine 5 MG TABLET PO SCH (09:00)
== END 2020-09-16 10:16 | disposition home or self-care (01) | DRG 39 ==
LOC: SAMDAY 09:17 → 2NNU 13:56
PROVIDERS: ADMIT Surgery; ATTEND Surgery